=== PATIENT | male | born 1945 | race Caucasian/White ===

== ENCOUNTER → 2017-09-02 | Outpatient (CLI) | payer MEDICARE, MEDICAID ==
[~2017-09-02] MED LIST: ACTOS 15MG TABL15 MG PO; AMERINET C40 MG/0.4 IJ; AMLO5TAB PO; CIPRO 500MG TA500 MG PO; CLONIDINE 0.2M0.2 MG PO; COMBIVENT INH14.7 GM IN; FLAGYL 500MG.500 MG PO; FLAGYL500 M1 PO; FLONASE 50 MCG16 GM; GLIPIZIDE10 MG PO; HYDROCHLOROTH12.5 M1 PO; LEVAQUIN500 MG PO; LISINOPRIL/HCTZ1 TA3 PO; LISINOPRIL10 MG PO; LISINOPRIL2.5 M1 PO; METFORMIN HCL1000 MG PO; METFORMIN1000 MG PO; METFORMIN850 MG PO; METRONIDAZOLE500 M1 PO; NEXIUM40 MG PO; OMEPRAZOLE40 MG PO; ONDANSETRON4 MG/2 ML PO; SIMVASTATIN10 MG PO; ZOLPIDEM 10MG T10 MG PO
[2017-09-02 11:02] LABS: HEMOGLOBIN 13.5 g/dL (14.1-18.0); LYMPH # 1.8 K/mm3 (0.7-4.5); LYMPH % 25.7 % (10-50)
[2017-09-02 11:08] LABS: BUN 12 mg/dL (7-18)
[2017-09-02 11:13] LABS: GFR (ESTIMATED) 66 ML/MIN (>60)
--- NOTE | 2017-09-02 15:43 | RADIOLOGY REPORT PS360 ---
[id number] VIEWS COMPARISON: Left shoulder 01/24/2015 HISTORY: Right shoulder pain for quite some time but worse recently, history of colon cancer, bone scan performed same date showing slight increased activity right AC joint TECHNIQUE: 3 views right shoulder FINDINGS: There is prominent narrowing of the AC joint with mild spurring inferiorly. Humeral head and glenoid appear normal. There is no lytic or blastic lesions seen and there are no soft tissue calcifications. IMPRESSION: Moderate degenerative changes AC joint, the minor inferior spurring could cause a mild predisposition to impingement syndrome. I see no findings to suggest metastatic disease.
--- NOTE | 2017-09-02 15:49 | RADIOLOGY REPORT PS360 ---
NUC BONE SCAN-WHOLE BODY-TBB COMPARISON: None HISTORY: Known colorectal cancer, bladder mass, hematuria, right shoulder pain TECHNIQUE: 26.3 mCi technetium 9M MDP was injected. Focal body anterior posterior scans were obtained along with cone-down lateral views of the skull and neck. In addition static images of the upper chest and shoulders were obtained. FINDINGS: The bony calvarium appears normal. There is slightly increased activity lower cervical spine likely reflecting degenerative change. There is slight increased activity at the AC joint right shoulder when compared to left and follow-up plain film showed joint space narrowing and a small spur inferiorly of the right AC joint. The thoracic and lumbar spine show normal activity. The rib cage is unremarkable. There is rather intense activity at the urinary bladder with is no obvious deformity of the bladder identified. The bony pelvis hips femurs knees and lower legs are unremarkable. IMPRESSION: Bone scan grossly negative for evidence of metastatic disease, slightly increased activity right AC joint as indicated above
== END ==
LOC: RAD 08-29 11:00
PROVIDERS: Nurse Practitioner
DX: C20 Malignant neoplasm of rectum (principal); C18.9 Malignant neoplasm of colon, unspecified; D41.4 Neoplasm of uncertain behavior of bladder; M25.511 Pain in right shoulder; R31.9 Hematuria, unspecified
CPT/HCPCS: A9503

== ENCOUNTER 2017-10-06 11:00 | Outpatient (CLI) | payer MEDICARE, MEDICAID ==
[~2017-10-06] VITALS: Ht 172.7 cm; Wt 88.0 kg
[2017-10-06] VITALS (9 sets, daily range): BP systolic 130–154; BP diastolic 57–95
[2017-10-06 11:46] LABS: LYMPH # 1.4 K/mm3 (0.7-4.5); LYMPH % 18.3 % (10-50)
[2017-10-06 11:48] LABS: URINE BLOOD 3+ (NEG)
[2017-10-06 11:52] LABS: HEMOGLOBIN 11.8 g/dL (14.1-18.0)
[2017-10-06 11:59] LABS: URINE BILIRUBIN - DIPSTICK 1+ (NEG)
[2017-10-06 12:06] LABS: URINE SQUAMOUS CELLS OCC #/hpf (OCC)
--- NOTE | 2017-10-06 13:29 | CONSULT NOTE ---
Oncology Clinic F/Up Visit History of present illness: The year-old man with rectal cancer that has recurred in his liver. He was first treated adjuvantly 2007 with Avastin oxaliplatin and Xeloda. His been sufficient length of time that we could retry name chemotherapy that he read given at that time. We went over the side effects of Xeloda and Avastin and oxaliplatin signed the consent form port has been placed and he should be able to start his treatments in 1 week. Home medications: Active Scripts Omeprazole (Omeprazole 40MG) 40 MG PO DAILY #30 ECC Ref 5 Prov: 03/07/16 Reported Medications Lisinopril 2.5 MG PO DAILY #30 TAB METFORMIN HCL (Metformin 1000MG) 1,000 MG PO BID #60 TAB Allergies: Coded Allergies: No Known Allergies (09/24/16) Vital signs/Labs: Weight -LB: OZ: KG: Method:Floor Scales Height -FT:5 IN:8 CM: BMI: Laboratory Tests 10/06/17 1135: WBC 7.9, RBC 4.17 L, Hgb 11.8 L, Hct 36.4 L, MCV 87.5, RDW 14.0, Plt Count 257, MPV 8.0, Gran % 70.6, Gran # 5.6, Lymphocytes % 18.3, Monocytes % 4.4, Eosinophils % 6.3, Basophils % 0.4, Lymphocytes # 1.4, Monocytes # 0.3, Eosinophils # 0.5 H, Basophils # 0.0, PUBS MCHC 32.2, MCH 28.2, Urine Color DK YELLOW, Urine Appearance CLOUDY, Urine pH 5.5, Ur Specific [place] >= 1.030, Urine Protein 2+ H, Urine Ketones TRACE H, Urine Blood 3+ H, Urine Nitrate POSITIVE H, Urine Bilirubin 1+ H, Urine Urobilinogen 0.2, Ur Leukocyte Esterase TRACE H, Urine RBC TNTC, Urine WBC 20-50, Ur Squamous Epith Cells OCC, Urine Bacteria 3+, Urine Glucose 3+ H Microbiology Date/Time Procedure - Status Source Growth 10/06 1135 Urine Culture - RECD URINE CC Exam: General appearance: normal appearance ABD: normal exam Assessment Discussion/Summary: Return to clinic in a week to 10 days for initiation of therapy I will see him 2 weeks after that. at [id number]
== END 2017-10-06 14:30 | disposition home or self-care (01) ==
LOC: COP 11:00
PROVIDERS: Internal Medicine
DX: C18.9 Malignant neoplasm of colon, unspecified (principal); R82.90 Unspecified abnormal findings in urine
CPT/HCPCS: J9035

== ENCOUNTER 2017-10-29 08:45 | Outpatient (CLI) | payer MEDICARE, MEDICAID ==
[2017-10-29 08:45] VITALS: BP 167/82
[~2017-10-29 08:45] MED LIST changes: +XELODA500 MG PO
[2017-10-29 09:30] VITALS: BP 151/79
[2017-10-29 10:00] VITALS: BP 146/78
[2017-10-29 10:30] VITALS: BP 149/72
[2017-10-29 11:00] VITALS: BP 162/78
[2017-10-29 11:50] VITALS: BP 167/54
== END 2017-10-29 12:00 | disposition home or self-care (01) ==
LOC: COP 08:45
DX: R19.7 Diarrhea, unspecified (principal)